=== PATIENT | female | born 1950 | race African-American/Black ===

== ENCOUNTER → 2017-01-31 | Outpatient (CLI) | payer OTHER ==
[~2017-01-31] VITALS: Ht 157.5 cm; Wt 72.6 kg
[~2017-01-31] MED LIST: ADVIL FLU & BO1 EACH PO; ALEVE220 M1 PO; AMLODIPINE BESYL5 MG PO; ASPIR 8181 MG PO; CO Q-10100 MG PO; ENSURE237 ML PO; HYDROCHLOROTHIA25 M1 PO; IBUPROFEN 200200 M1 PO; PRAVACHOL40 MG PO; VITAMIN D1000 UNI1 PO
--- NOTE | ~2017-01-31 | S ---
[facility] [place] [address] SURGICAL PATH RPT PROCEDURE Name: EDITH PAZ Room #: REG [facility] Josh#: [id number] Admission: 01/31/17 Date of : 52 Discharge: Report #: [id number] Path Case #: [id number] PATHOLOGY REPORT COLLECTION DATE: 01/31/2017 RECEIVED DATE: 01/31/2017 SUBMITTING PHYS: Dr. Jethro Ko OTHER PHYS: Dr. Anahi Zaragoza SPECIMEN(S) RECEIVED: A.Transverse colon polyp * * * * * * * * * * * * FINAL DIAGNOSIS: Polyp, transverse colon, polypectomy: - Consistent with an inflammatory polyp associated with reactive changes. - Negative for dysplasia. - Cauterized margin showing unremarkable mucosa. (IUV:mgr; 02/03/2017) PATHOLOGIST: Mine Raza M.D. REPORT ELECTRONICALLY SIGNED BY: Mine Raza M.D. DATE/TIME: 02/03/2017 14:46 * * * * * * * * * * * * GROSS PATHOLOGY: Received in formalin labeled "Edith Paz, polyp in transverse colon," is a 0.9 x 0.6 x 0.6 cm polypoid piece of maxwell soft tissue with a stalk measuring 0.1 cm in length and 0.3 cm in diameter. The margin of the stalk is inked and the tissue is sectioned perpendicular to the margin and submitted in its entirety in cassette A1. (TSD; 01/31/2017) CLINICAL HISTORY: None provided INITIAL CPT CODE(S): A; 96578 Professional services performed by [facility] at [facility] [address] , [place] [address] Technical services performed by [facility] at [address] [place] [address] [place] [address] SURGICAL PATH RPT PROCEDURE Name: EDITH PAZ Room #: KAT Moreno#: [id number] Admission: 01/31/17 Date of : 52 Discharge: Report #: [id number] Path Case #: [id number] [place] [id number]. [facility] [address] [place] [address] PHONE: [phone] DIRECTOR: Juanjo Benitez M.D. * * * END OF REPORT * * *
--- NOTE | ~2017-01-31 | P ---
[facility] [place] [address] PROCEDURE REPORT Name: WILL PAZ Room #: REG [facility]#: [id number] Admission: 01/31/17 Attend Phys: Jethro Mosqueda Discharge: Date of : 52 Report #: [id number] THIS REPORT FOR: //name// CC: Jethro Ko [facility] physician/PCP Anahi Zaragoza MD DATE OF SERVICE: 01/31/2017 PROCEDURE PERFORMED: Colonoscopy with polypectomy. HISTORY OF PRESENT ILLNESS: The patient is a 66-year-old female with a history of colon polyps, last colonoscopy 3 years ago. She denies any symptoms at this time. No family history of colon cancer. PROCEDURE: The risks and benefits of the procedure were explained to the patient, those risks including, but not limited to bleeding, perforation, and the risk of sedation. She understood these risks and gave informed consent. Sedation was given using propofol per anesthesia. Next, a digital rectal exam was initially performed, which was normal. Next, using a standard Fujinon colonoscope, the scope was placed in the patient's anus and advanced under direct vision to the cecum. The overall prep was excellent. The cecum and ileocecal valve were normal in appearance. The ascending colon was normal. In the transverse colon, a 6-mm partially pedunculated polyp was noted. This was removed by snare cautery, otherwise normal. The descending and sigmoid colon were normal. The rectal mucosa was normal. On retroflexion, no abnormalities were noted. The scope was then withdrawn and the procedure terminated. The patient tolerated the procedure well. IMPRESSION: 1. Colon polyp. 2. Otherwise, normal colonoscopy. RECOMMENDATIONS: 1. Await biopsy results. 2. Repeat colonoscopy in 5 years. Thank you for allowing me to participate in her care. By: [id number] Jethro Ko MD /nt
== END | disposition home or self-care (01) ==
LOC: GI 08:02
DX: Z09 Encounter for follow-up examination after completed treatment for conditions other than malignant neoplasm (principal); Z87.19 Personal history of other diseases of the digestive system; D12.3 Benign neoplasm of transverse colon; Z87.891 Personal history of nicotine dependence; J43.9 Emphysema, unspecified; I10 Essential (primary) hypertension; E78.5 Hyperlipidemia, unspecified
CPT/HCPCS: 62110; 62900